=== PATIENT | male | born 1990 | race Hispanic/Latino ===

== ENCOUNTER 2017-05-20 03:21 | Inpatient (IN) ==
[2017-05-20] MEDS ORDERED: NS 1,000 ML IV ONE ×2 (04:19→06:19)
[2017-05-20] MEDS ORDERED: NS 1,000 ML ONE (04:21)
[2017-05-20 04:35] LABS: MANUAL DIFF NEEDED? NO
[2017-05-20] MEDS ORDERED: ZOFRAN ONE (04:35)
[2017-05-20 04:42] LABS: BASO% 0.3 % (0.0-0.8); EOS# 0.11 X1000 (0.0-0.7); EOS% 0.9 % (0.0-10.0); HEMATOCRIT 44.1 % (42.0-52.0); IMM GRAN# 0.04 X1000 (0.0-0.04); IMM GRAN% 0.3 % (0.0-0.5); LYMPH# 4.71 X1000 (1.2-3.4); MCH 30.9 PG (27-31); MCHC 36.3 g/dL (33-37); MCV 85.3 FL (81-99); MONO# 0.45 X1000 (0.11-0.59); MONO% 3.5 % (1.7-9.3); MPV 9.6 FL (7.4-10.4); PLT 389 X1000 (130-400); RBC 5.17 XMIL (4.7-6.1)
[2017-05-20 04:52] LABS: AGAP 17; ALBUMIN 5.2 g/dL (3.5-5.0); ALKALINE PHOSPHATASE 82 U/L (32-122); BUN 10 mg/dL (8-22); CALCIUM 9.5 mg/dL (8.8-10.2); CHLORIDE 101 mmol/L (98-107); COSMO 282; GOT 32 U/L (10-34); GPT 35 U/L (10-44); POTASSIUM 3.7 mmol/L (3.5-5.1); SODIUM 141 mmol/L (136-145); TCO2 23 mmol/L (25-35); TOTAL BILIRUBIN 0.26 mg/dL (0.20-1.00); TOTAL PROTEIN 7.9 g/dL (6.3-8.3)
[2017-05-20] MEDS ORDERED: ZOFRAN IV ONE (06:20)
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
[2017-05-20 07:53] LABS: HEMATOCRIT 33.9 % (42.0-52.0); HEMOGLOBIN 11.8 g/dL (14.0-18.0)
[2017-05-20 10:01] LABS: INR 1.08; PROTIME 11.4 Seconds (9.2-11.7)
[2017-05-20 10:26] LABS: URINE CULTURE NEEDED? NO; URINE MICRO REVIEW NEEDED? NO; URINE SOURCE CLEAN CATCH
[2017-05-20 10:32] LABS: BILIRUBIN URINE NEGATIVE (NEGATIVE); BLOOD URINE NEGATIVE (NEGATIVE); COLOR YELLOW; GLUCOSE URINE NEGATIVE (NEGATIVE); LEUKOCYTES URINE NEGATIVE (NEGATIVE); NITRITE URINE NEGATIVE (NEGATIVE); PROTEIN URINE NEGATIVE (NEGATIVE); SP GRAVITY URINE 1.013; TURBIDITY URINE CLEAR (CLEAR); UROBILINOGEN URINE NORMAL (NORMAL)
[2017-05-20 10:34] LABS: UR EPITHELIAL CELLS <10 /HPF (<10); URINE BACTERIA NEGATIVE /HPF; URINE RBC <10 /HPF (<10); URINE WBC <10 /HPF (<10)
[2017-05-20] MEDS ORDERED: NORCO-5 PO PRN (10:36)
[2017-05-20 11:06] LABS: UR AMPHETAMINES QUAL NONE DETECTED (NONE DETECT); UR BARBITUATES QUAL NONE DETECTED (NONE DETECT); UR BENZODIAZEPIN QUAL NONE DETECTED (NONE DETECT); UR CANNABINOIDS QUAL NONE DETECTED (NONE DETECT); UR COCAINE QUAL NONE DETECTED (NONE DETECT); UR METHADONE QUAL NONE DETECTED (NONE DETECT); UR OPIATES QUAL NONE DETECTED (NONE DETECT); UR OXYCODONE QUAL NONE DETECTED (NONE DETECT); UR PCP QUAL NONE DETECTED (NONE DETECT)
[2017-05-20] MEDS: NS 1,000 ML IV SCH ×2 (11:10→19:52)
[2017-05-20 11:59] LABS: HEMOGLOBIN 11.7 g/dL (14.0-18.0)
[2017-05-20] MEDS ORDERED: ROCEPHIN 1 GM in NS 50 ML IV SCH (13:15)
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
[2017-05-20 17:43] LABS: HEMATOCRIT 30.8 % (42.0-52.0); HEMOGLOBIN 10.8 g/dL (14.0-18.0)
[2017-05-20 22:36] LABS: HEMOGLOBIN 9.7 g/dL (14.0-18.0)
[2017-05-21] MEDS: NS 1,000 ML IV SCH ×2 (02:13→09:58)
[2017-05-21 05:49] LABS: HEMATOCRIT 27.2 % (42.0-52.0); HEMOGLOBIN 9.5 g/dL (14.0-18.0); MCH 31.5 PG (27-31); MCHC 34.9 g/dL (33-37); MCV 90.1 FL (81-99); MPV 9.4 FL (7.4-10.4); RBC 3.02 XMIL (4.7-6.1)
[2017-05-21 06:44] LABS: FREE T4 0.86 ng/dL (0.93-1.70)
[2017-05-21 06:51] LABS: AGAP 9; BUN 8 mg/dL (8-22); CALCIUM 7.3 mg/dL (8.8-10.2); CHLORIDE 106 mmol/L (98-107); COSMO 278; MAGNESIUM 1.8 mg/dL (1.5-2.7); POTASSIUM 3.9 mmol/L (3.5-5.1); SODIUM 140 mmol/L (136-145); TCO2 25 mmol/L (25-35)
[2017-05-21 11:14] VITALS: BP 117/61
[2017-05-21] MEDS ORDERED: KEFLEX PO SCH (21:00)
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
== END 2017-05-21 16:05 | disposition home or self-care (01) ==
LOC: ED 03:21 → 4N 03:21 → OBSVTOIN 10:22 → 4N 10:23
PROVIDERS: ATTEND Internal Medicine